=== PATIENT | female | born 1995 | race Two or more races ===

== ENCOUNTER 2020-04-15 08:02 | Inpatient (IN) | payer OTHER ==
[~2020-04-15] VITALS: Ht 154.9 cm; Wt 64.0 kg
[2020-04-15] MEDS ORDERED: PRENATABS RX T1 EACH PO (08:43)
== END 2020-04-17 13:04 | disposition home or self-care (01) | DRG 807 ==
LOC: LDR 08:02 → OB/GYN 08:02
PROVIDERS: ADMIT Obstetrics & Gynecology; ATTEND Obstetrics & Gynecology
PROC: 10E0XZZ Delivery of Products of Conception, External Approach (ICD-10-PCS; principal; 2020-04-15)
PROC: 4A1HXFZ Monitoring of Products of Conception, Cardiac Rhythm, External Approach (ICD-10-PCS; 2020-04-15)
PROC: 3E033VJ Introduction of Other Hormone into Peripheral Vein, Percutaneous Approach (ICD-10-PCS; 2020-04-15)
DX: O80 Encounter for full-term uncomplicated delivery (principal); Z37.0 Single live birth; Z3A.39 39 weeks gestation of pregnancy; Z20.828 Contact with and (suspected) exposure to other viral communicable diseases

== ENCOUNTER 2024-06-30 08:02 | Outpatient (CLI) | payer OTHER ==
[~2024-06-30 08:02] MED LIST: PRENATABS RX T1 EACH PO
== END 2024-06-30 08:05 | disposition home or self-care (01) ==
LOC: PRENATAL 08:02
PROVIDERS: ATTEND Obstetrics & Gynecology Maternal & Fetal Medicine
DX: O44.00 Complete placenta previa NOS or without hemorrhage, unspecified trimester (principal); Z3A.20 20 weeks gestation of pregnancy

== ENCOUNTER 2024-09-29 08:38 | Outpatient (CLI) | payer OTHER | END 2024-09-29 08:39 | disposition home or self-care (01) | LOC: PRENATAL 08:38 | PROVIDERS: ATTEND Obstetrics & Gynecology Maternal & Fetal Medicine | DX: O26.849 Uterine size-date discrepancy, unspecified trimester (principal); O36.8199 Decreased fetal movements, unspecified trimester, other fetus; Z3A.31 31 weeks gestation of pregnancy ==

== ENCOUNTER 2024-11-09 07:40 | Inpatient (IN) | payer OTHER ==
[~2024-11-09] VITALS: Ht 154.9 cm; Wt 66.2 kg
[2024-11-09 06:32] VITALS: BP 104/68
[2024-11-09] MEDS ORDERED: PRENATAL TABLE1 EAC1 PO (07:47)
[2024-11-09] MEDS ORDERED: MISOPROSTOL 25 MCG/4 ML GEL.W.APPL ONE (07:56)
[2024-11-09] MEDS ORDERED: RINGERS SOLUTION,LACTATED 1,000 ML IV SCH (08:00)
[2024-11-09 08:14] LABS: PH,URINE 5.5 (5.0-8.0); URINE APPEARANCE Clear; URINE BILIRRUBIN Negative (NEGATIVE); URINE BLOOD Negative; URINE COLOR Yellow; URINE GLUCOSE Negative (NEGATIVE); URINE KETONE Negative (NEGATIVE); URINE LEUKOCYTE Moderate; URINE NITRATE Negative; URINE PROTEIN Negative (NEGATIVE); URINE UROBILINOGEN 0.2 E.U./dl
[2024-11-09] MEDS ORDERED: MISOPROSTOL 25 MCG/4 ML GEL.W.APPL VAG ONE (08:15)
[2024-11-09 08:19] LABS: URINE BACTERIA 1359.8 uL (0.0-1933); URINE EPITHELIAL CELLS 44.3 uL (0.0-38.8); URINE RBC 2.5 uL (0.0-20.8); URINE WBC 156.3 uL (0.0-23.2)
[2024-11-09 08:23] LABS: HEMATOCRIT 38.1 % (36.0-45.00); MEAN CELL VOLUME 92.3 fL (80.00-100.00); MEAN CORPUSCULAR HEMOGLOBIN 31.5 pg (27.00-32.0); MEAN CORPUSCULAR HGB CONC 34.1 g/dl (32.0-36.0); RED BLOOD COUNT 4.13 M/uL (4.00-6.00); RED CELL DISTRIBUTION WIDTH 15.8 % (11.5-14.5); URINE CAST 0.44 uL (0.0-1.40)
[2024-11-09 08:28] LABS: PLATELET COUNT 128 K/uL (150-450)
[2024-11-09 09:06] LABS: INR 0.94; PARTIAL THROMBOPLASTIN TIME 27.1 SECONDS (22.0-34.0); PROTHROMBIN TIME 10.3 SECONDS (9.0-11.5)
[2024-11-09 09:15] LABS: ALBUMIN 2.7 gm/dL (3.4-5.0); BILIRUBIN TOTAL 0.56 mg/dL (0.3-1.2); CALCIUM 8.7 mg/dL (8.5-10.1); CREATININE SERUM 0.68 mg/dL (0.55-1.02); GFR 103.79; GLOBULINA 3.1 G/DL (2.4-3.5); POTASSIUM 4.2 mEq/L (3.5-5.1); TOTAL PROTEIN 5.8 gm/dL (6.4-8.2)
[2024-11-09 12:01] VITALS: BP 111/77
[2024-11-09] MEDS ORDERED: OXYTOCIN 20 UNITS/500ML RL PIGGYBAG IV ONE (12:40)
[2024-11-09] MEDS ORDERED: OXYTOCIN 500 ML IV SCH (13:15)
[2024-11-09] MEDS ORDERED: CHLORHEXIDINE GLUCONATE 120 ML BOTTLE TOP ONE ×3 (14:13→17:15)
[2024-11-09] MEDS ORDERED: OXYTOCIN 20 UNITS/1000ML RL PIGGYBAG IV ONE (14:13)
[2024-11-09] MEDS ORDERED: ERYTHROMYCIN BASE OPHT 1GM EACH TUBE OP ONE ×2 (14:13→15:15)
[2024-11-09] MEDS ORDERED: LIDOCAINE HCL 1% 10ML VIAL ONE (14:14)
[2024-11-09] MEDS ORDERED: OXYTOCIN 10 UNITS/ML VIAL ONE (14:15)
[2024-11-09 15:10] VITALS: BP 128/77
[2024-11-09] MEDS ORDERED: OXYTOCIN 1,000 ML IV SCH ×2 (15:15→17:15)
[2024-11-09] MEDS ORDERED: OXYTOCIN 10 UNITS/ML VIAL IM ONE (15:15)
[2024-11-09 15:21] VITALS: BP 113/66
[2024-11-09] MEDS ORDERED: OXYTOCIN 10 UNITS/ML VIAL IM STA (17:15)
[2024-11-09] MEDS ORDERED: IBUprofen 400 MG TABLET PO PRN (17:15)
[2024-11-09 17:16] VITALS: BP 125/82
[2024-11-09 19:43] LABS: HEMATOCRIT 41.3 % (36.0-45.00); HEMOGLOBIN 14.1 g/dL (12.0-15.00); MEAN CELL VOLUME 92.6 fL (80.00-100.00); MEAN CORPUSCULAR HEMOGLOBIN 31.6 pg (27.00-32.0); MEAN CORPUSCULAR HGB CONC 34.1 g/dl (32.0-36.0); RED BLOOD COUNT 4.46 M/uL (4.00-6.00); RED CELL DISTRIBUTION WIDTH 15.5 % (11.5-14.5)
[2024-11-09 20:54] LABS: PLATELET COUNT 125 K/uL (150-450)
[2024-11-09 21:30] VITALS: BP 93/60
[2024-11-10 00:21] VITALS: BP 100/60
[2024-11-10 05:38] VITALS: BP 102/69
[2024-11-10 08:07] VITALS: BP 102/70
[2024-11-10 15:22] VITALS: BP 105/70
[2024-11-11 00:23] VITALS: BP 114/78
[2024-11-11 05:34] VITALS: BP 119/79
[2024-11-11 08:00] VITALS: BP 130/80
== END 2024-11-11 15:08 | disposition home or self-care (01) | DRG 807 ==
LOC: LDR 07:40 → OB/GYN 15:15
PROVIDERS: ADMIT Obstetrics & Gynecology; ATTEND Obstetrics & Gynecology
PROC: 10E0XZZ Delivery of Products of Conception, External Approach (ICD-10-PCS; principal; 2024-11-09)
PROC: 4A1HXCZ Monitoring of Products of Conception, Cardiac Rate, External Approach (ICD-10-PCS; 2024-11-09)
PROC: 3E033VJ Introduction of Other Hormone into Peripheral Vein, Percutaneous Approach (ICD-10-PCS; 2024-11-09)
PROC: 3E0P7VZ Introduction of Hormone into Female Reproductive, Via Natural or Artificial Opening (ICD-10-PCS; 2024-11-09)
DX: O80 Encounter for full-term uncomplicated delivery (principal); Z37.0 Single live birth; Z3A.39 39 weeks gestation of pregnancy; Z20.822 Contact with and (suspected) exposure to COVID-19